=== PATIENT | female | born 1975 | race African-American/Black ===

== ENCOUNTER 2022-05-15 14:10 | Emergency (ER) | payer OTHER ==
[2022-05-15 14:57] VITALS: BP 142/73; PULSE 68; RESP 18; TEMP 98.6; BMI 44.0
[2022-05-15 16:10] LABS: HEMATOCRIT 35.2 % (32.4-45.2); HEMOGLOBIN 11.5 G/dL (10.7-15.3); MCH 25.1 pg (25.7-33.7); MCHC 32.6 g/dl (32.0-36.0); MEAN CELL VOLUME 77.1 fl (80-96); MEAN PLT VOLUME 8.7 fl (7.5-11.1); PLATELET COUNT 239.9 10^3/uL (134-434); RBC 4.57 10^6/uL (3.60-5.2); RDW 16.6 % (11.6-15.6); WHITE BLOOD COUNT 5.8 10^3/uL (4.0-10.8)
[2022-05-15 16:22] LABS: ALBUMIN 4.2 g/dl (3.4-5.0); BILIRUBIN,TOTAL 1.1 mg/dl (0.2-1); CALCIUM 9.2 mg/dl (8.5-10); CREATININE 0.8 mg/dl (0.55-1.3); TOT PROT 7.6 g/dl (6.4-8.2)
[2022-05-15 17:33] LABS: PLATELET ESTIMATE ADEQUATE
== END 2022-05-15 17:00 | disposition home or self-care (01) ==
LOC: FER 14:10
DX: J06.9 Acute upper respiratory infection, unspecified (principal)
CPT/HCPCS: 0241U-QW; 36415; 71046-TC-FY; 80053; 85027; 93005; 99285-25